=== PATIENT | male | born 1960 | race Caucasian/White ===

== ENCOUNTER 2018-07-14 13:37 | Outpatient (REF) | payer MEDICARE, SELFPAY ==
[2018-07-14 20:11] LABS: COMMENT (LAB VIEW ONLY) 79.89 mg/dL; Microalb ug/mg Crea 10.5 ug/mg Cr
== END 2018-07-14 13:57 ==
LOC: NCHCN 13:37
PROVIDERS: Visit Provider Nurse Practitioner Family
DX: R73.09 Other abnormal glucose (principal)
CPT/HCPCS: 82043; 82570

== ENCOUNTER 2019-03-10 13:37 | Outpatient (REF) | payer OTHER, SELFPAY ==
[2019-03-10 19:16] LABS: ALT 30 U/L (12-78); AST 20 U/L (15-37); Albumin 4.2 g/dL (3.4-5.0); Alkaline Phosphatase 61 U/L (46-116); Anion Gap 11.7 mmol/L (3-11); BUN 26 mg/dL (7-18); Bilirubin, Total 0.4 mg/dL (0.2-1.0); CO2 26.3 mmol/L (21.0-32.0); CREATININE 1.06 mg/dL (0.55-1.02); Calcium 9.6 mg/dL (8.5-10.1); Chloride 101 mmol/L (98-107); Estimated GFR 53.06 (mL/min/1.73m2); Glucose 108 mg/dL (70-100); Potassium 4.1 mmol/L (3.5-5.1); Sodium 139 mmol/L (136-145); Total Protein 7.5 g/dL (6.4-8.2)
== END 2019-03-10 13:57 ==
LOC: NCHCN 13:37
PROVIDERS: PCP Nurse Practitioner Family; Visit Provider Nurse Practitioner Family
DX: I10 Essential (primary) hypertension (principal); E78.5 Hyperlipidemia, unspecified
CPT/HCPCS: 80053

== ENCOUNTER 2019-09-08 13:30 | Outpatient (REF) | payer OTHER, SELFPAY ==
[2019-09-08 19:42] LABS: COMMENT (LAB VIEW ONLY) 142.48 mg/dL; Microalb ug/mg Crea 8.1 ug/mg Cr
== END 2019-09-08 13:50 ==
LOC: NCHCN 13:30
PROVIDERS: PCP Nurse Practitioner Family; Visit Provider Nurse Practitioner Family
DX: R73.09 Other abnormal glucose (principal)
CPT/HCPCS: 82043; 82570

== ENCOUNTER 2020-09-20 14:52 | Outpatient (REF) | payer OTHER, SELFPAY ==
[2020-09-20 19:49] LABS: ALT 73 U/L (14-59); AST 58 U/L (15-37); Albumin 4.4 g/dL (3.4-5.0); Alkaline Phosphatase 58 U/L (46-116); Anion Gap 9.4 mmol/L (3-11); BUN 26 mg/dL (7-18); Bilirubin, Total 0.5 mg/dL (0.2-1.0); CO2 24.6 mmol/L (21.0-32.0); CREATININE 1.12 mg/dL (0.55-1.02); Calcium 9.4 mg/dL (8.5-10.1); Chloride 102 mmol/L (98-107); Estimated GFR 49.46 (mL/min/1.73m2); Glucose 91 mg/dL (74-106); Potassium 4.1 mmol/L (3.5-5.1); Sodium 136 mmol/L (136-145); Total Protein 7.7 g/dL (6.4-8.2)
[2020-09-20 20:02] LABS: Hemoglobin A1C 5.8 % (<5.7)
== END 2020-09-20 15:12 ==
LOC: NCHCN 14:52
PROVIDERS: PCP Nurse Practitioner Family; Visit Provider Nurse Practitioner Family
DX: E11.9 Type 2 diabetes mellitus without complications (principal); I10 Essential (primary) hypertension
CPT/HCPCS: 80053; 83036

== ENCOUNTER 2021-02-20 18:43 | Outpatient (REF) | payer OTHER, SELFPAY ==
--- NOTE | 2021-02-20 14:00 | PAPFT_PTH ---
PATIENT: America Curran LOC: [facility] U#:[id number] AGE/SX: 60/F ROOM: RE02/20/[address]: Kayy Garrido : 1960 BED: DIS: 02/20/2021 SPEC #: [id number] RECD: 02/21/21 12:43 STATUS: CARLOS JEAN-BAPTISTE #: [id number] CHRIS: 02/20/21 14:[address]: Kayy Garrido DEPT: [facility] Cytology RECD BY: Kelly East Tissues: 1 - CX/ENDOCX FOR PAP SMEARS Procedures: PAP THIN PREP/[facility] Screening Comments: [id number] (UNSATISFACTORY FOR EVALUATION)
[2021-02-20 19:35] LABS: Hemoglobin A1C 6.4 % (<5.7)
[2021-02-20 19:39] LABS: ALT 114 U/L (14-59); AST 81 U/L (15-37); Albumin 4.5 g/dL (3.4-5.0); Alkaline Phosphatase 65 U/L (46-116); Anion Gap 13.2 mmol/L (3-11); BUN 24 mg/dL (7-18); Bilirubin, Total 0.6 mg/dL (0.2-1.0); CO2 24.8 mmol/L (21.0-32.0); CREATININE 1.1 mg/dL (0.55-1.02); Calcium 9.6 mg/dL (8.5-10.1); Calculated LDL 83 mg/dL (<100); Chloride 102 mmol/L (98-107); Cholesterol 173 mg/dL (<200); Glucose 114 mg/dL (74-106); HDL Cholesterol 76 mg/dL (40-60); Potassium 4.3 mmol/L (3.5-5.1); Sodium 140 mmol/L (136-145); Triglyceride 72 mg/dL (<150)
== END 2021-02-20 18:44 | disposition home or self-care (01) ==
LOC: NCHCN 18:43
PROVIDERS: PCP Nurse Practitioner Family; Visit Provider Nurse Practitioner Family
DX: E11.9 Type 2 diabetes mellitus without complications (principal); E78.5 Hyperlipidemia, unspecified; I10 Essential (primary) hypertension; Z12.4 Encounter for screening for malignant neoplasm of cervix; Z01.419 Encounter for gynecological examination (general) (routine) without abnormal findings; R87.615 Unsatisfactory cytologic smear of cervix
CPT/HCPCS: 80053; 80061; 88142; 83036

== ENCOUNTER 2021-09-05 16:02 | Outpatient (REF) | payer MEDICARE, SELFPAY ==
[2021-09-05 20:54] LABS: COMMENT (LAB VIEW ONLY) 99.02 mg/dL; Microalb ug/mg Crea 14.3 ug/mg Cr
== END 2021-09-05 16:03 | disposition home or self-care (01) ==
LOC: NCHCN 16:02
PROVIDERS: PCP Nurse Practitioner Family; Visit Provider Physician Assistant
DX: E11.9 Type 2 diabetes mellitus without complications (principal)
CPT/HCPCS: 82043; 82570

== ENCOUNTER 2022-04-24 15:40 | Outpatient (REF) | payer MEDICARE, SELFPAY ==
[2022-04-24 19:48] LABS: BUN 23 mg/dL (7-18); CREATININE 1.1 mg/dL (0.55-1.02); Calcium 9.4 mg/dL (8.5-10.1); Chloride 100 mmol/L (98-107); Estimated GFR 50.33 (mL/min/1.73m2); Glucose 125 mg/dL (74-106); Potassium 4.3 mmol/L (3.5-5.1); Sodium 140 mmol/L (136-145)
== END 2022-04-24 15:41 | disposition home or self-care (01) ==
LOC: NCHCN 15:40
PROVIDERS: PCP Nurse Practitioner Family; Visit Provider Physician Assistant
DX: I10 Essential (primary) hypertension (principal)
CPT/HCPCS: 80048

== ENCOUNTER 2022-11-27 14:00 | Outpatient (REF) | payer MEDICARE, SELFPAY ==
--- NOTE | 2022-11-27 13:40 | PAPFT_PTH ---
PATIENT: America Curran LOC: [facility]#:[id number] AGE/SX: 62/F ROOM: RE11/27/[address]: Vilma Barron : 1960 BED: DIS: 11/27/2022 SPEC #: [id number] RECD: 11/27/22 18:37 STATUS: RASHEEDChris REDonta #: [id number] CHRIS: 11/27/22 13:[address]: Vilma Barron [facility] Cytology RECD BY: Kelly East ENTERED: 11/27/22 18:37 SP TYPE: PAPFT OTHR DR: Kayy Garrido Tissues: 1 - CX/ENDOCX FOR PAP SMEARS Procedures: PAP THIN PREP/[facility] Screening HPV DNA PROBE Comments: [id number]
== END 2022-11-27 14:01 | disposition home or self-care (01) ==
LOC: NCHCN 14:00
PROVIDERS: PCP Nurse Practitioner Family; Visit Provider Physician Assistant
DX: Z12.4 Encounter for screening for malignant neoplasm of cervix (principal); Z11.51 Encounter for screening for human papillomavirus (HPV); Z01.419 Encounter for gynecological examination (general) (routine) without abnormal findings
CPT/HCPCS: 88142; 87624

== ENCOUNTER 2023-02-27 17:53 | Outpatient (REF) | payer MEDICARE, SELFPAY ==
[2023-02-27 19:45] LABS: Bilirubin Small (Negative); Blood Small (Negative); Clarity Cloudy (Clear); Glucose Negative (Negative); Ketones Trace mg/dL (Negative); Leukocyte Esterase Small (Negative); Nitrite Positive (Negative); Specific Gravity >= 1.030 (1.005-1.025); Urobilinogen 0.2 mg/dL (Up to 0.2)
[2023-02-27 19:53] LABS: Bacteria Many HPF (Negative); C & S Indicated? Yes; Casts Negative LPF (Negative); Crystals Negative HPF (Negative); Epithelial Cells Few HPF (Negative); Mucus Negative (Negative); WBC 20-50 HPF (0-5)
== END 2023-02-27 17:54 | disposition home or self-care (01) ==
LOC: NCHCN 17:53
PROVIDERS: PCP Nurse Practitioner Family; Visit Provider Nurse Practitioner Family
DX: R35.0 Frequency of micturition (principal)
CPT/HCPCS: 87077; 81003; 81015; 87086; 87186

== ENCOUNTER 2023-03-07 14:18 | Outpatient (REF) | payer MEDICARE, SELFPAY ==
[2023-03-07 19:00] LABS: ALT 47 U/L (14-59); AST 38 U/L (15-37); Albumin 4.5 g/dL (3.4-5.0); Alkaline Phosphatase 46 U/L (46-116); BUN 35 mg/dL (7-18); Bilirubin, Total 0.5 mg/dL (0.2-1.0); CREATININE 1.1 mg/dL (0.55-1.02); Calcium 9.7 mg/dL (8.5-10.1); Chloride 101 mmol/L (98-107); Estimated GFR 56.46 (mL/min/1.73m2); Glucose 108 mg/dL (74-106); Potassium 4.8 mmol/L (3.5-5.1); Sodium 137 mmol/L (136-145); Total Protein 8.3 g/dL (6.4-8.2)
[2023-03-11 09:52] LABS: HIV-1/2 Ag & Ab Screen Negative (Negative)
[2023-03-11 10:22] LABS: Hepatitis C Ab w Rflx HCV PCR Negative (Negative)
== END 2023-03-07 14:19 | disposition home or self-care (01) ==
LOC: NCHCN 14:18
PROVIDERS: PCP Nurse Practitioner Family; Visit Provider Physician Assistant
DX: E11.9 Type 2 diabetes mellitus without complications (principal); E78.5 Hyperlipidemia, unspecified; I10 Essential (primary) hypertension; Z11.59 Encounter for screening for other viral diseases; Z11.4 Encounter for screening for human immunodeficiency virus [HIV]
CPT/HCPCS: 80053; 86803; 87389

== ENCOUNTER 2023-09-18 16:27 | Outpatient (REF) | payer MEDICARE, SELFPAY ==
[2023-09-18 20:36] LABS: COMMENT (LAB VIEW ONLY) 83.87 mg/dL; Microalb ug/mg Crea 39.3 ug/mg Cr
[2023-09-18 20:54] LABS: Hemoglobin A1C 6.3 % (<5.7)
== END 2023-09-18 16:28 | disposition home or self-care (01) ==
LOC: NCHCN 16:27
PROVIDERS: PCP Nurse Practitioner Family; Visit Provider Physician Assistant
DX: E11.9 Type 2 diabetes mellitus without complications (principal)
CPT/HCPCS: 82043; 82570; 83036

== ENCOUNTER 2024-03-24 18:33 | Outpatient (REF) | payer MEDICARE, SELFPAY ==
[2024-03-24 19:20] LABS: ALT 49 U/L (14-59); AST 34 U/L (15-37); Albumin 4.2 g/dL (3.4-5.0); Alkaline Phosphatase 50 U/L (46-116); Anion Gap 9.6 mmol/L (3-11); BUN 23 mg/dL (7-18); Bilirubin, Total 0.4 mg/dL (0.2-1.0); CO2 27.4 mmol/L (21.0-32.0); Calcium 9.5 mg/dL (8.5-10.1); Chloride 104 mmol/L (98-107); Estimated GFR 62.91 (mL/min/1.73m2); Glucose 107 mg/dL (74-106); Potassium 4.5 mmol/L (3.5-5.1); Sodium 141 mmol/L (136-145)
== END 2024-03-24 18:34 | disposition home or self-care (01) ==
LOC: NCHCN 18:33
PROVIDERS: PCP Nurse Practitioner Family; Visit Provider Physician Assistant
DX: I10 Essential (primary) hypertension (principal)
CPT/HCPCS: 80053

== ENCOUNTER 2025-04-20 18:15 | Outpatient (REF) | payer MEDICARE, OTHER, SELFPAY ==
[2025-04-20 20:17] LABS: ALT 56 U/L (14-59); AST 45 U/L (15-37); Albumin 4.2 g/dL (3.4-5.0); Alkaline Phosphatase 54 U/L (46-116); Anion Gap 8.6 mmol/L (3-11); BUN 25 mg/dL (7-18); Bilirubin, Total 0.5 mg/dL (0.2-1.0); CO2 27.4 mmol/L (21.0-32.0); Calcium 9.7 mg/dL (8.5-10.1); Chloride 102 mmol/L (98-107); Estimated GFR 62.52 (mL/min/1.73m2); Glucose 107 mg/dL (74-106); Potassium 4.5 mmol/L (3.5-5.1); Sodium 138 mmol/L (136-145); Total Protein 7.8 g/dL (6.4-8.2)
== END 2025-04-20 18:16 | disposition home or self-care (01) ==
LOC: NCHCN 18:15
PROVIDERS: PCP Nurse Practitioner Family; Visit Provider Physician Assistant
DX: E11.9 Type 2 diabetes mellitus without complications (principal)
CPT/HCPCS: 80053